=== PATIENT | female | born 2000 | race Caucasian/White ===

== ENCOUNTER 2023-03-07 19:28 | Emergency (ER) | payer OTHER ==
[~2023-03-07] VITALS: Ht 160 cm; Wt 59.0 kg
[2023-03-07 20:10] VITALS: BP 115/75; TEMP 98.8
[2023-03-07] MEDS ORDERED: AMOX/CLAVULANATE 250 MG TABLET ONE (20:28)
[2023-03-07] MEDS ORDERED: IBUPROFEN 600 MG TABLET ONE (20:28)
[2023-03-07] MEDS ORDERED: AMOXICILLIN TRIHYDRATE 250 MG CAPSULE ONE (20:29)
[2023-03-07] MEDS ORDERED: AMOXICILLIN TRIHYDRATE 500 MG CAPSULE PO ONE (20:30)
[2023-03-07] MEDS ORDERED: IBUPROFEN 600 MG TABLET PO ONE (20:30)
[2023-03-07] MEDS ORDERED: AMOX500C2 PO (20:30)
[2023-03-07 21:01] VITALS: O2SAT 100
== END 2023-03-07 21:02 | disposition home or self-care (01) ==
LOC: ER 19:31
DX: H66.92 Otitis media, unspecified, left ear (principal)